=== PATIENT | male | born 1985 ===

== ENCOUNTER 2018-04-11 11:52 | Emergency (ER) | payer OTHER ==
[2018-04-11 12:02] VITALS: BP 136/82; PULSE 74; RESP 16; TEMP 98.2; O2SAT 98; BMI 29.5
--- NOTE | 2018-04-11 12:18 | ED PDOC ---
HPI: Back Time Seen by Provider: 04/11/18 12:08 Chief Complaint (Nursing): Back Pain Chief Complaint (Provider): Back Pain History Per: Patient, Cmm Operator (OMAR Foy at bedside for Belarusian translation) History/Exam Limitations: no limitations Onset/Duration Of Symptoms: Days (x3) Current Symptoms Are (Timing): Still Present Additional Complaint(s): 32 year old male presents to the ED complaining of non-radiating left sided back pain since . Patient states he took Advil last night with no relief. Patient denies any fall or trauma, no bowel or bladder dysfunction. PMD: none Past Medical History Reviewed: Historical Data, Nursing Documentation, Vital Signs Vital Signs: Last Vital Signs Temp 98.2 F 04/11/18 12:01 Pulse 74 04/11/18 12:01 Resp 16 04/11/18 12:01 BP 136/82 04/11/18 12:01 Pulse Ox 98 04/11/18 12:01 - Medical History PMH: Diabetes, Hypercholesterolemia - Surgical History Surgical History: No Surg Hx - Family History Family History: States: No Known Family Hx - Living Arrangements Living Arrangements: With Family - Social History Current smoker - smoking cessation education provided: No Alcohol: Social Drugs: Denies - Home Medications Home Medications: Ambulatory Orders Medication Instructions Recorded Cyclobenzaprine [Cyclobenzaprine 10 mg PO TID PRN #20 tab 04/11/18 HCl] Naproxen [Naprosyn] 500 mg PO BID #20 tab 04/11/18 - Allergies Allergies/Adverse Reactions: Allergies Allergy/AdvReac Type Severity Reaction Status Date / Time No Known Allergies Allergy Verified 04/11/18 12:15 Review of Systems ROS Statement: Except As Marked, All Systems Reviewed And Found Negative Constitutional: Negative for: Fever Gastrointestinal: Negative for: Nausea, Vomiting Genitourinary Male: Negative for: Dysuria Musculoskeletal: Positive for: Back Pain (left sided) Physical Exam - Reviewed Nursing Documentation Reviewed: Yes Vital Signs Reviewed: Yes - Physical Exam Appears: Positive for: Well, Non-toxic, No Acute Distress Skin: Positive for: Normal Color. Negative for: Rash Eye Exam: Positive for: Normal appearance Cardiovascular/Chest: Positive for: Regular Rate, Rhythm Respiratory: Positive for: Normal Breath Sounds. Negative for: Wheezing, Respiratory Distress Back: Positive for: Vertebral Tenderness (Muscle spasm and tenderness to the left paraspinal region along lumbar spine), Other (negative bilateral straight leg raise). Negative for: L CVA Tenderness, R CVA Tenderness Neurologic/Psych: Positive for: Alert, Oriented, Gait (steady) - Laboratory Results Urine dip results: Negative for: Leukocyte Esterase, Blood, Nitrate, Ketones, Glucose, Bilirubin, Protein - ECG O2 Sat by Pulse Oximetry: 98 (RA) Pulse Ox Interpretation: Normal - Other Rad LS Spine X-ray X-Ray: Interpreted by Me, Viewed By Me X-Ray Interpretation: no fx, no dis Medical Decision Making Medical Decision Making: Initial Impression: 32 y/o with back pain Initial Plan: --Urine dip --Cyclobenzaprine 10mg PO --Toradol 30mg IM --Tylenol 975mg PO --Spine AP/LAT X-ray Patient states pain is improved after meds given in ED. Patient made aware of x-ray results. Prescriptions for Flexeril and Naprosyn provided. Patient was referred to clinic for follow-up. Scribe Attestation: Documented by Sadi Paez acting as a scribe for Aimee BUSCH. Provider Scribe Attestation: All medical record entries made by the Scribe were at my direction and personally dictated by me. I have reviewed the chart and agree that the record accurately reflects my personal performance of the history, physical exam, medical decision making, and the department course for this patient. I have also personally directed, reviewed, and agree with the discharge instructions and disposition. Disposition - Clinical Impression Clinical Impression: Back strain - Patient ED Disposition Is Patient to be Admitted: No Counseled Patient/Family Regarding: Studies Performed, Diagnosis, Need For Followup, Rx Given - Disposition Referrals: [facility] [Outside] Disposition: Routine/Home Disposition Time: 13:06 Condition: STABLE Additional Instructions: Take prescription meds as directed as needed for pain. Follow-up with clinic for further evaluation. Prescriptions: Cyclobenzaprine [Cyclobenzaprine HCl] 10 mg PO TID PRN #20 tab PRN Reason: Muscle Spasm Naproxen [Naprosyn] 500 mg PO BID #20 tab Instructions: Low Back Pain in Adults, Back Exercises, Muscle Strain Forms: [facility] (Bel[place]ian) Print Language: PORTUGUESE
--- NOTE | 2018-04-11 13:05 | RAD ---
Date of service: 04/11/2018 PROCEDURE: Radiographs of the Lumbar Spine. HISTORY: pain COMPARISON: No prior. FINDINGS: BONES: Normal alignment. No listhesis. No fracture. DISC SPACES: Unremarkable. OTHER FINDINGS: None. IMPRESSION: Unremarkable radiographs of the lumbar spine.
== END 2018-04-11 13:16 | disposition home or self-care (01) ==
LOC: EDSEX 11:52 → H.ER 11:52
DX: S39.012A Strain of muscle, fascia and tendon of lower back, initial encounter (principal); E11.9 Type 2 diabetes mellitus without complications; E78.00 Pure hypercholesterolemia, unspecified
CPT/HCPCS: 72100; 96372; 99284; J1885